=== PATIENT | male | born 1995 | race Hispanic/Latino ===

== ENCOUNTER 2018-09-22 17:46 | Emergency (ER) | payer OTHER ==
[2018-09-22] MEDS ORDERED: ONDANSETRON ODT 4 MG TAB ONE (18:34)
[2018-09-22] MEDS ORDERED: SILVER SULFADIAZINE CREAM 50 GM TP ONE (18:34)
[2018-09-22] MEDS ORDERED: ACETAMINOPHEN-CODEINE 300/30MG TAB ONE (18:34)
== END 2018-09-22 19:25 | disposition home or self-care (01) ==
LOC: EDH 17:46
DX: T25.221A Burn of second degree of right foot, initial encounter (principal); T31.0 Burns involving less than 10% of body surface; X19.XXXA Contact with other heat and hot substances, initial encounter; Y93.89 Activity, other specified; Y92.89 Other specified places as the place of occurrence of the external cause; Y99.8 Other external cause status
CPT/HCPCS: 16020